=== PATIENT | male | born 1935 | race Caucasian/White ===

== ENCOUNTER 2022-02-15 14:20 | Inpatient (IN) | payer MEDICARE, OTHER, SELFPAY ==
[2022-02-15] VITALS (33 sets, daily range): BP systolic 113–143; BP diastolic 62–79; PULSE 48–73; RESP 16; TEMP 36.3–36.8; O2SAT 91–96; BMI 26.4
--- NOTE | 2022-02-15 14:41 | ED.CHESTPAIN ---
HPI - Chest Pain General Time Seen by Provider: 15:06 Date Seen: 02/15/22 Chief Complaint: Chest Pain Stated Complaint: Chest Pain Post Heart Surgery Time Seen by Provider: 02/15/22 14:41 Source: patient, family, RN notes reviewed and old records reviewed Mode of arrival: ambulatory Limitations: no limitations History of Present Illness HPI narrative: Patient is a very pleasant 86-year-old male who is coming to the emergency room with nausea, abdominal pain, and weakness. Patient was EN route about half way home from [place] where he had just been discharged after placement of 4 stents when he developed nausea and some abdominal discomfort. He also had increased weakness while walking. Also had some arm pain. They continued home to his granddaughter's house [place]. When in a chair he seemed to get worse and he was given nitro x2 with some improvement of his symptoms. At this time in the emergency room patient states that he still has nausea but is abdominal and arm pain is gone. He has not had fever or chills or diarrhea. He has started medications including Plavix, metoprolol, Imdur, PPI. 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 He was noted to have unusual need to stop for rest while out walking. He developed chest pain pain radiating to his left arm and nausea. 24 hours later had family came to visit for [place] and he was still experiencing some dizziness and nausea. That evening Sunday he was seen at a small hospital in [place]. Usually this hospital with transfer to a [place] for heart issues because he had been identified as a non-STEMI. However there was no capacity and on Sunday patient was transferred to [facility] in [place] at approximately 2130 hours there he underwent placement of 4 stents. He was also diagnosed with chronic diastolic heart failure with an EF of 56%. Hypertension, hyperlipidemia, acute kidney injury on chronic kidney disease stage 3 and had evidence of a right bundle branch block on his EKG. No known complications from his recent visit to [facility]. Related Data Home Medications Medication Instructions Recorded Confirmed clopidogrel 75 mg tablet (Plavix) 75 mg PO DAILY 02/15/22 02/15/22 isosorbide mononitrate 30 mg 30 mg PO DAILY 02/15/22 02/15/22 tablet,extended release 24 hr metoprolol succinate 25 mg capsule 25 mg PO DAILY 02/15/22 02/15/22 sprinkle, ext. release 24 hr nitroglycerin 2.5 mg 0.4 mg PO TID PRN 02/15/22 02/15/22 capsule,extended release (Nitro-Time) pantoprazole 40 mg tablet,delayed 40 mg PO DAILY 02/15/22 02/15/22 release rosuvastatin 20 mg sprinkle capsule 20 mg PO DAILY 02/15/22 02/15/22 Allergies Allergy/AdvReac Type Severity Reaction Status Date / Time No Known Drug Allergies Allergy Verified 02/15/22 14:31 Review of Systems Status of ROS Reports: 10 or more systems reviewed and unremarkable except as noted in History and below Const Denies: fever or chills Eyes Denies: change in vision ENMT Denies: throat pain or hoarseness Cardio Reports: shortness of breath with exertion (With exertion); Denies: chest pain, palpitations, edema or swelling of feet/ankles Resp Reports: shortness of breath (With exertion); Denies: cough or wheezing GI Reports: abdominal pain (Resolve) and nausea (Persistent); Denies: vomiting or diarrhea Denies: painful urination or urinary frequency Musculo Denies: back pain Neuro Denies: headache Allergy/Immuno Denies: wheezing PFSH PFSH Social History Smoking Status: Former smoker Do you use any of these nicotine containing products: None Second hand tobacco smoke exposure: No How often do you have a drink containing alcohol: never AUDIT-C Alcohol total score: 0 Non-prescribed substance use: denies use Exam Narrative Exam Narrative: Discharged from paperwork from [facility] is reviewed. We do not have any records on this patient. Patient is alert and oriented. He does appear fatigued but nontoxic in appearance. His EOM is full. Neck is supple without lymphadenopathy. Heart with a regular rate and rhythm without murmur. Lungs are with decreased breath sounds in the bases but I do not auscultate any crackles. Abdomen is soft nontender. Lower extremities without any edema. Moving all extremities. Const Vital Signs, click to edit/add: Vital Signs - 24 hr 02/15/22 14:23 02/15/22 14:30 02/15/22 15:11 Temperature 97.4 F L Pulse Rate Pulse Rate [Right Pulse Oximeter] 67 Respiratory Rate 16 Blood Pressure 127/62 Blood Pressure [Right Upper Arm] 113/66 Pulse Oximetry 96 91 Oxygen Delivery Method Room Air 02/15/22 15:13 02/15/22 15:30 02/15/22 15:32 Temperature Pulse Rate 49 L 50 L 49 L Pulse Rate [Right Pulse Oximeter] Respiratory Rate Blood Pressure 123/65 Blood Pressure [Right Upper Arm] Pulse Oximetry 92 95 94 Oxygen Delivery Method 02/15/22 14:50 02/15/22 14:57 02/15/22 15:33 Temperature Pulse Rate 49 L Pulse Rate [Right Pulse Oximeter] Respiratory Rate Blood Pressure Blood Pressure [Right Upper Arm] Pulse Oximetry 93 95 94 Oxygen Delivery Method 02/15/22 16:00 02/15/22 16:02 02/15/22 16:30 Temperature Pulse Rate 48 L 48 L 51 L Pulse Rate [Right Pulse Oximeter] Respiratory Rate Blood Pressure 123/65 Blood Pressure [Right Upper Arm] Pulse Oximetry 94 94 93 Oxygen Delivery Method 02/15/22 16:32 02/15/22 17:00 02/15/22 17:02 Temperature Pulse Rate 52 L 50 L 51 L Pulse Rate [Right Pulse Oximeter] Respiratory Rate Blood Pressure 131/74 128/70 Blood Pressure [Right Upper Arm] Pulse Oximetry 94 93 93 Oxygen Delivery Method 02/15/22 17:30 02/15/22 17:32 02/15/22 18:00 Temperature Pulse Rate 52 L 51 L 51 L Pulse Rate [Right Pulse Oximeter] Respiratory Rate Blood Pressure 122/69 Blood Pressure [Right Upper Arm] Pulse Oximetry 94 93 93 Oxygen Delivery Method 02/15/22 18:02 02/15/22 18:03 02/15/22 18:30 Temperature Pulse Rate 50 L 50 L 49 L Pulse Rate [Right Pulse Oximeter] Respiratory Rate Blood Pressure 129/67 Blood Pressure [Right Upper Arm] Pulse Oximetry 94 94 93 Oxygen Delivery Method 02/15/22 18:32 02/15/22 19:00 02/15/22 19:02 Temperature Pulse Rate 48 L 51 L 50 L Pulse Rate [Right Pulse Oximeter] Respiratory Rate Blood Pressure 131/67 143/79 H Blood Pressure [Right Upper Arm] Pulse Oximetry 94 92 94 Oxygen Delivery Method 02/15/22 19:30 02/15/22 19:32 02/15/22 20:00 Temperature Pulse Rate 51 L 49 L 54 L Pulse Rate [Right Pulse Oximeter] Respiratory Rate Blood Pressure 130/71 Blood Pressure [Right Upper Arm] Pulse Oximetry 94 92 93 Oxygen Delivery Method Documenting provider has reviewed patient's vital signs: yes Course Course Hospital Course: Patient is post stent placement at [facility] over the past 48 hours. He felt fine when he departed [facility] but long-term home he began experiencing arm pain, nausea, abdominal pain. They continued home and once there because symptoms seem to worsen they did do nitroglycerin x2 which did help. Patient is now in our emergency room at [facility]. Will do preliminary labs including CBC, comprehensive panel, troponin, urinalysis. Patient will receive Zofran. EKG will be done patient will placed on court monitor as well as oximetry. An IV will be placed. Reevaluation(s) Reevaluation #1: Patient has had resolution of nausea. Remains symptom-free at this time. Vital Signs Vital signs: Initial Vital Signs Temperature 97.4 F L 02/15/22 14:23 Temperature Source Temporal Artery Scan 02/15/22 14:23 Pulse Rate 67 02/15/22 14:23 Respiratory Rate 16 02/15/22 14:23 Blood Pressure 113/66 02/15/22 14:23 Blood Pressure Mean 81 02/15/22 14:23 Blood Pressure Position Sitting 02/15/22 14:23 Pulse Oximetry 96 02/15/22 14:23 Oxygen Delivery Method 02/15/22 14:23 Vital Signs Temperature 97.4 F L 02/15/22 14:23 Pulse Rate 67 02/15/22 14:23 Respiratory Rate 16 02/15/22 14:23 Blood Pressure 113/66 02/15/22 14:23 Pulse Oximetry 96 02/15/22 14:23 Oxygen Delivery Method 02/15/22 14:23 Temperature 98.0 F 02/15/22 20:02 Pulse Rate 53 L 02/15/22 20:02 Respiratory Rate 16 02/15/22 14:23 Blood Pressure 130/66 02/15/22 20:02 Pulse Oximetry 94 02/15/22 20:02 Oxygen Delivery Method 02/15/22 14:23 MDM - Chest Pain MDM Narrative Medical decision making narrative: 1. Angina post stent placement-patient has been pain-free since he has been in present in the ED. he did not need any further nitroglycerin but did have 2 doses prior to his arrival. Initial troponin 5.26 with subsequent troponin 4.19. EKG showed T-wave inversions in the inferior anterior lateral leads. However, in discussion with [facility] Cardiology this is unchanged from previous. Unfortunately no baseline to compare troponin but the fact that it is going down is reassuring. [place] [facility] suggest continuing current medications. At this time given pain-free state or anginal equivalent pain free state, no recommendation for heparin. 2. Chronic renal failure-creatinine is 2.4 able to ascertain that this morning's creatinine was also 2.4. 3. History of non STEMI-patient had 4 stents placed over knee in the last 48 hours. [facility] initially accepted this patient in transfer but then called back to tell us they would not be able to give him a bed tonight. Cardiology feels that he is safe to stay at [facility]. There really is no other transfers that we could possibly do tonight given the fact that we have been unable to get any patient's into the [facility]. Further[facility] I did inquire about possibility of transfer to [place] but given plunging temperatures and life-threatening when chills along with poor visibility this would be unsafe for EMS transport. Again, patient has been pain-free during his stay here. 4. Disposition-admit to the hospital in the care of Dr. Bolivar Medical Records Data Attestation: I reviewed the patient's medical records. Lab Data Attestation: I reviewed the patient's lab results. Labs: Lab Results 02/15/22 02/15/22 02/15/22 Range/Units 15:10 15:16 15:16 WBC 9.78 (4.50-11.00) K/uL RBC 3.62 L (4.30-5.90) m/uL Hgb 11.1 L (13.5-17.5) gm/dL Hct 32.2 L (37.0-53.0) % MCV 89 (80-100) fL MCH 31 (26-34) pg MCHC 35 (32-36) gm/dL RDW Coeff of Hannah 13.6 (11.5-15.5) % Plt Count 196 (140-440) K/uL Neut % (Auto) 78.1 H (42.0-72.0) % Lymph % (Auto) 7.4 L (20-44) % Morehouse % (Auto) 12.6 H (0.0-11.0) % Eos % (Auto) 0.9 (0.0-7.0) % Baso % (Auto) 0.1 (0.0-3.0) % Neut # (Auto) 7.60 H (1.7-7.0) K/uL Lymph # (Auto) 0.70 L (0.90-2.90) K/uL Morehouse # (Auto) 1.20 H (0.00-0.90) K/UL Eos # (Auto) 0.09 (0.00-0.50) K/uL Baso # (Auto) 0.01 (0.00-0.30) K/uL Sodium 127 L (135-149) mmol/L Potassium 4.5 (3.6-5.1) mmol/L Chloride 98 (96-114) mmol/L Carbon Dioxide 20 (20-32) mmol/L BUN 21 (7-30) mg/dL Creatinine 2.4 H (0.5-1.5) mg/dL Estimated Creat Clear 22.81 Estimated GFR 26 ml/min Glucose 127 H (60-115) mg/dL Calcium 8.8 (8.4-10.6) mg/dL Total Bilirubin 0.8 (0.1-1.5) mg/dL AST 57 H (12-35) U/L ALT 24 (4-50) U/L Alkaline Phosphatase 79 (40-150) U/L Total Protein 7.4 (6.0-8.3) g/dL Albumin 4.0 (3.3-5.0) g/dL SARS-CoV-2 (PCR) (Negative) Influenza Type A (PCR) (Negative) Influenza Type B (PCR) (Negative) POC Troponin I 5.26 H (0.01-0.04) ng/ml 02/15/22 02/15/22 Range/Units 15:16 16:30 WBC (4.50-11.00) K/uL RBC (4.30-5.90) m/uL Hgb (13.5-17.5) gm/dL Hct (37.0-53.0) % MCV (80-100) fL MCH (26-34) pg MCHC (32-36) gm/dL RDW Coeff of Hannah (11.5-15.5) % Plt Count (140-440) K/uL Neut % (Auto) (42.0-72.0) % Lymph % (Auto) (20-44) % Morehouse % (Auto) (0.0-11.0) % Eos % (Auto) (0.0-7.0) % Baso % (Auto) (0.0-3.0) % Neut # (Auto) (1.7-7.0) K/uL Lymph # (Auto) (0.90-2.90) K/uL Morehouse # (Auto) (0.00-0.90) K/UL Eos # (Auto) (0.00-0.50) K/uL Baso # (Auto) (0.00-0.30) K/uL Sodium (135-149) mmol/L Potassium (3.6-5.1) mmol/L Chloride (96-114) mmol/L Carbon Dioxide (20-32) mmol/L BUN (7-30) mg/dL Creatinine (0.5-1.5) mg/dL Estimated Creat Clear Estimated GFR ml/min Glucose (60-115) mg/dL Calcium (8.4-10.6) mg/dL Total Bilirubin (0.1-1.5) mg/dL AST (12-35) U/L ALT (4-50) U/L Alkaline Phosphatase (40-150) U/L Total Protein (6.0-8.3) g/dL Albumin (3.3-5.0) g/dL SARS-CoV-2 (PCR) Negative SARS-CoV-2 (Negative) Influenza Type A (PCR) Negative PCR FLU A (Negative) Influenza Type B (PCR) Negative PCR FLU B (Negative) POC Troponin I 4.71 H (0.01-0.04) ng/ml Imaging Data Chest x-ray: Attestation: I have reviewed the pertinent imaging results. My impression: No obvious infiltrates Radiologist's impression: Lungs: Mild interstitial prominence could indicate venous congestion or chronic change. No focal consolidation. Pleura: No pleural effusion or pneumothorax. Heart and Mediastinum: The cardiomediastinal silhouette is normal. The vessels are unremarkable. Bones: Unremarkable. IMPRESSION: No acute cardiopulmonary disease. ECG Data Attestation: I personally reviewed and interpreted this ECG as follows: ECG interpretation date: 02/15/22 Interpretation: EKG by my read shows sinus rhythm at a rate of 50. T-wave inversion in the inferior lateral leads noted. Right bundle-branch block is noted. Discharge Plan Discharge Clinical Impression: Creatinine elevation, Angina at rest Patient Disposition: Admitted As Inpatient Condition: Improved
--- NOTE | 2022-02-15 14:57 | CRLHL7_ITS ---
For Patients: As a result of the Cures Act, medical imaging exams and procedure reports are released immediately into your electronic medical record. You may view this report before your referring provider. If you have questions, please contact your health care provider. INDICATION: Angina. TECHNIQUE: Chest 1 views. COMPARISON: None. FINDINGS: Lungs: Mild interstitial prominence could indicate venous congestion or chronic change. No focal consolidation. Pleura: No pleural effusion or pneumothorax. Heart and Mediastinum: The cardiomediastinal silhouette is normal. The vessels are unremarkable. Bones: Unremarkable. IMPRESSION: No acute cardiopulmonary disease. Dictated by Mehrdad Tafoya MD @ 02/15/2022 4:01:17 PM (Electronically Signed)
[2022-02-15 15:27] LABS: Basophils Absolute Auto 0.01 K/uL (0.00-0.30); Basophils Percent Auto 0.1 % (0.0-3.0); Eosinophils Absolute Auto 0.09 K/uL (0.00-0.50); Eosinophils Percent Auto 0.9 % (0.0-7.0); Hematocrit 32.2 % (37.0-53.0); Hemoglobin* 11.1 gm/dL (13.5-17.5); Immature Granulocytes Abs Auto 0.09 K/uL (0.00-0.30); Immature Granulocytes Pct Auto 0.9 %; Lymphocytes Percent Auto 7.4 % (20-44); Mean Corpuscular HGB Conc 35 gm/dL (32-36); Mean Corpuscular Hemoglobin 31 pg (26-34); Mean Corpuscular Volume 89 fL (80-100); Monocytes Percent Auto 12.6 % (0.0-11.0); Neutrophils Percent Auto 78.1 % (42.0-72.0); Platelet Count* 196 K/uL (140-440); RDW Coefficient of Variation % 13.6 % (11.5-15.5); Red Blood Count 3.62 m/uL (4.30-5.90); White Blood Count* 9.78 K/uL (4.50-11.00)
[2022-02-15 15:33] LABS: Slide Review Reflex No
[2022-02-15 15:35] LABS: Troponin, Point-of-Care* 5.26 ng/ml (0.01-0.04)
[2022-02-15] MEDS: ONDANSETRON ODT 4 MG TAB PO (15:40)
[2022-02-15 15:42] LABS: Chloride* 98 mmol/L (96-114); Potassium* 4.5 mmol/L (3.6-5.1); Sodium* 127 mmol/L (135-149)
[2022-02-15 15:44] LABS: Creatinine* 2.4 mg/dL (0.5-1.5); Est. Creatinine Clearance* 22.81; Estimated Glomerular Filt Rate 26 ml/min
[2022-02-15 15:45] LABS: Alanine Aminotransferase* 24 U/L (4-50); Alkaline Phosphatase* 79 U/L (40-150); Aspartate Amino Transferase* 57 U/L (12-35); Bilirubin Total* 0.8 mg/dL (0.1-1.5); Blood Urea Nitrogen* 21 mg/dL (7-30); Carbon Dioxide* 20 mmol/L (20-32); Glucose* 127 mg/dL (60-115); Total Protein* 7.4 g/dL (6.0-8.3)
[2022-02-15 15:46] LABS: Calcium* 8.8 mg/dL (8.4-10.6)
[2022-02-15 15:56] LABS: PCR FLU A Negative PCR FLU A (Negative); PCR FLU B Negative PCR FLU B (Negative)
[2022-02-15 16:02] LABS: SARS PCR* Negative SARS-CoV-2 (Negative)
--- NOTE | 2022-02-15 16:28 | ED.NURSE ---
Per Dr Khanna, acceptance to [place]. Awaiting call back for bed
[2022-02-15 16:52] LABS: Troponin, Point-of-Care* 4.71 ng/ml (0.01-0.04)
--- NOTE | 2022-02-15 18:40 | ED.NURSE ---
Called [facility] to check on ETA for bed placement. Pt on a waiting list for PCU bed. Transfer center stated that it could be a few more hours, but due to the weather, transfer center stated she was going to speak with bed placement to see if other arrangements could be made. Awaiting a call back from [facility]. Accepting doctor is Dr Mcdonald.
--- NOTE | 2022-02-15 18:49 | ED.NURSE ---
[facility] returned call. There will not be a bed available for pt tonight. Will update
--- NOTE | 2022-02-15 18:56 | ED.NURSE ---
Heads up called to research greenhouse supervisor
--- NOTE | 2022-02-15 19:58 | P.IMHP_ITS ---
Hospitalist- H&P: HPI History of Present Illness Date Seen: 02/15/22 Chief complaint: Chest Pain Post Heart Surgery Narrative: Gordo Sotelo is a 86 year old male who presented to the emergency room with his son-in-law Fabio for concerns of abdominal pain, nausea, and weakness. 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 He stopped at his daughter's house in [place] given symptoms; took 2 nitro which relieved his discomfort. Given recent hospital stay, they presented to the [place] [facility] for symptoms. He has not had any fever or diarrhea. He has not vomited. ER course and findings: - persistent right bundle ricky block on EKG, noted T-wave inversions in inferoanterorior leads - elevated troponin - persistent nausea, relieved with Zofran - patient was initially accepted back at the [facility] for transfer; unfortunately, this bed was then taken prior to transfer - All other [facility] hospitals were called; patient is currently on the waiting list for [facility] in the emergency room discussed case with Cardiology at [facility]; given to downward trending troponins and resolution of symptoms, no heparin indicated at this time. Patient will be admitted for telemetry, serial troponins monitoring of symptoms. In addition to stenting at [facility], Gordo was noted to have RBBB on EKG and EF of 56% with chronic diastolic heart failure on TTE. He was discharged home on Plavix, Imdur, Toprol, nitro, Protonix, and Crestor. He has been taking these meds as prescribed. Patient's medical history updated below. His PCP is Dr. Yovany Bardales in [place], [place]. Review of Systems Status of ROS: Reports: 10 or more systems reviewed and unremarkable except as noted in History and below Narrative: Patiently currently denies CP, dyspnea, abdominal pain. FOR[facility]LY [facility] PFS Medical History (Updated 02/15/22 @ 21:24 by Rocio Bolivar MD) CKD (chronic kidney disease) Coronary artery disease Essential hypertension Hyperlipidemia Surgical History (Updated 02/15/22 @ 21:01 by Rocio Bolivar MD) Stented coronary artery Social History (Updated 02/15/22 @ 21:20 by Rocio Bolivar MD) Narrative: Lives with on a farm in [place], [place]. Daughter Tomeka lives in [place]. Patient quit smoking in the 1970s, he is a non-alcohol user. He is a retired armijo. Requests Full Code status. Smoking Status: Former smoker Do you use any of these nicotine containing products: None Second hand tobacco smoke exposure: No How often do you have a drink containing alcohol: never AUDIT-C Alcohol total score: 0 Non-prescribed substance use: denies use Meds Home Medications and Allergies Home Medications Medication Instructions Recorded Confirmed Type clopidogrel 75 mg tablet (Plavix) 75 mg PO DAILY 02/15/22 02/15/22 History isosorbide mononitrate 30 mg 30 mg PO DAILY 02/15/22 02/15/22 History tablet,extended release 24 hr metoprolol succinate 25 mg capsule 25 mg PO DAILY 02/15/22 02/15/22 History sprinkle, ext. release 24 hr nitroglycerin 2.5 mg 0.4 mg PO TID PRN 02/15/22 02/15/22 History capsule,extended release (Nitro-Time) pantoprazole 40 mg tablet,delayed 40 mg PO DAILY 02/15/22 02/15/22 History release rosuvastatin 20 mg sprinkle capsule 20 mg PO DAILY 02/15/22 02/15/22 History Allergies Allergy/AdvReac Type Severity Reaction Status Date / Time No Known Drug Allergies Allergy Verified 02/15/22 14:31 Exam Narrative: Exam Narrative: GEN: Alert HEENT: Normal external ears, EOMIs bilaterally, wearing hearing aids bilaterally CV: RRR, + systolic murmur without concerning features R: LCTA bilaterally without concerning wheezing, rales, or rhonchi Ext: wwp, trace bilateral edema Skin: No concerning skin lesions or rashes on exposed skin Neuro: No focal deficits Psych: Appropriate Const: Vital Signs, click to edit/add: Vital Signs - 24 hr 02/15/22 14:23 02/15/22 14:30 02/15/22 15:11 Temperature 97.4 F L Pulse Rate Pulse Rate [Right Pulse Oximeter] 67 Respiratory Rate 16 Blood Pressure 127/62 Blood Pressure [Ri ght Upper Arm] 113/66 Pulse Oximetry 96 91 Oxygen Delivery Me thod Room Air 02/15/22 15:13 02/15/22 15:30 02/15/22 15:32 Temperature Pulse Rate 49 L 50 L 49 L Pulse Rate [Right Pulse Oximeter] Respiratory Rate Blood Pressure 123/65 Blood Pressure [Ri ght Upper Arm] Pulse Oximetry 92 95 94 Oxygen Delivery Me thod 02/15/22 14:50 02/15/22 14:57 02/15/22 15:33 Temperature Pulse Rate 49 L Pulse Rate [Right Pulse Oximeter] Respiratory Rate Blood Pressure Blood Pressure [Ri ght Upper Arm] Pulse Oximetry 93 95 94 Oxygen Delivery Me thod 02/15/22 16:00 02/15/22 16:02 02/15/22 16:30 Temperature Pulse Rate 48 L 48 L 51 L Pulse Rate [Right Pulse Oximeter] Respiratory Rate Blood Pressure 123/65 Blood Pressure [Ri ght Upper Arm] Pulse Oximetry 94 94 93 Oxygen Delivery Me thod 02/15/22 16:32 02/15/22 17:00 02/15/22 17:02 Temperature Pulse Rate 52 L 50 L 51 L Pulse Rate [Right Pulse Oximeter] Respiratory Rate Blood Pressure 131/74 128/70 Blood Pressure [Ri ght Upper Arm] Pulse Oximetry 94 93 93 Oxygen Delivery Me thod 02/15/22 17:30 02/15/22 17:32 02/15/22 18:00 Temperature Pulse Rate 52 L 51 L 51 L Pulse Rate [Right Pulse Oximeter] Respiratory Rate Blood Pressure 122/69 Blood Pressure [Ri ght Upper Arm] Pulse Oximetry 94 93 93 Oxygen Delivery Me thod 02/15/22 18:02 Temperature Pulse Rate 50 L Pulse Rate [Right Pulse Oximeter] Respiratory Rate Blood Pressure 129/67 Blood Pressure [Ri ght Upper Arm] Pulse Oximetry 94 Oxygen Delivery Me thod Hospitalist - H&P: Result Labs Labs: Short CBC 02/15/22 Range/Units 15:16 WBC 9.78 (4.50-11.00) K/uL Hgb 11.1 L (13.5-17.5) gm/dL Hct 32.2 L (37.0-53.0) % Plt Count 196 (140-440) K/uL BMP 02/15/22 15:16 Sodium 127 L Potassium 4.5 Chloride 98 Carbon Dioxide 20 BUN 21 Creatinine 2.4 H Glucose 127 H Calcium 8.8 Liver Function 02/15/22 Range/Units 15:16 Total Bilirubin 0.8 (0.1-1.5) mg/dL AST 57 H (12-35) U/L ALT 24 (4-50) U/L Alkaline Phosphatase 79 (40-150) U/L Albumin 4.0 (3.3-5.0) g/dL Assessment and Plan Assessment and plan (1) Angina at rest: Problem comment: - resolved upon admission, recent PCI at [facility] Status: Acute (2) Coronary artery disease: Problem comment: - stented x4 02/11/22 at [place] Status: Acute (3) JAXSON (acute kidney injury): Problem comment: - with history of chronic kidney disease, baseline unclear Status: Acute Plan - admit to hospital on telemetry - follow troponins - communicate with Cardiology within any change in symptoms - Lovenox, SCDs, and Plavix for prophylaxis
--- NOTE | 2022-02-15 20:05 | W.PC.EDHO ---
Primary Language: Preferred Language: Orientation Status: [x] Alert & Oriented [] Slight Confusion [] Known Dx Dementia Transfers By: x Assist of 1 [] Assist of 2 [] Lift Active Medications Discontinued Medications Generic Name Dose Route Start Last Admin Trade Name Rafaela PRN Reason Stop Dose Admin Ondansetron HCl 4 mg 02/15/22 14:57 02/15/22 15:40 Ondansetron Odt 4 Mg Tab PO 02/15/22 14:58 4 mg ONCE ONE Administration Description of Symptoms ED Triage Present Problem patient on Sunday was having chest pain and on Description Sunday went [facility] and 4 stents placed. patient was discharged from [facility] today and returned to home with family sat in chair c/o left arm pain and left sided chest pain. started 1300 ago. taken 2 nitro with some relief rating at 3/ 10 scale. feeling nauseated and dizzy ED Triage Date of Onset of 02/15/22 Symptoms Pain Pain Description [Left Chest] Acute Pain Intensity [Left Chest] 3 Pain Scale Used [Left Chest] Numeric (1 - 10) Pain Scale Used Numeric (1 - 10) IV Insertion/Site Date of IV Line Insertion [ 02/15/22 Left Antecubital] Oxygen Administration Pulse Oximetry 94 Pulse Oximetry 93 Pulse Oximetry 93 Pulse Oximetry 94 Pulse Oximetry 93 Pulse Oximetry 93 Pulse Oximetry 94 Pulse Oximetry 93 Pulse Oximetry 94 Pulse Oximetry 94 Pulse Oximetry 94 Pulse Oximetry 94 Pulse Oximetry 95 Pulse Oximetry 92 Pulse Oximetry 95 Pulse Oximetry 93 Pulse Oximetry 91 Pulse Oximetry 96 Oxygen Delivery Method Room Air Cardiac Monitoring EKG Method 12 Lead EKG Method Bedside EKG Method Bedside
--- NOTE | 2022-02-15 20:52 | ED.NURSE ---
Report to KAROLINA Balbuena.
[2022-02-15 22:30] LABS: Troponin I* 5.81 ng/mL (0.01-0.04)
[2022-02-15] MEDS: ENOXAPARIN 30 MG/0.3ML INJ SUBCUT (23:00)
[2022-02-15 23:04] LABS: Troponin I* 6.32 ng/mL (0.01-0.04)
--- NOTE | 2022-02-15 23:28 | PC.NURSE ---
Critical troponin of 6.[address] Bolivar notified, no new orders received.
== END 2022-02-16 02:25 | disposition short-term general hospital (02) | DRG 281 ==
LOC: ED 19:59 → MEDSURG 20:00
PROVIDERS: Admitting Provider Family Medicine; Emergency Provider Family Medicine; Visit Provider Family Medicine
DX: I21.4 Non-ST elevation (NSTEMI) myocardial infarction (principal); I13.0 Hypertensive heart and chronic kidney disease with heart failure and stage 1 through stage 4 chronic kidney disease, or unspecified chronic kidney disease; I23.7 Postinfarction angina; N17.9 Acute kidney failure, unspecified; I50.32 Chronic diastolic (congestive) heart failure; Z95.5 Presence of coronary angioplasty implant and graft; N18.30 Chronic kidney disease, stage 3 unspecified; I45.10 Unspecified right bundle-branch block; I25.118 Atherosclerotic heart disease of native coronary artery with other forms of angina pectoris; E78.5 Hyperlipidemia, unspecified
CPT/HCPCS: 36415; 71045; 80048; 80053; 84484; 85025; 87631; 93005; 94761; 99285; A9270; J1650

== ENCOUNTER 2022-02-16 02:09 | Outpatient (CLI) | payer MEDICARE, OTHER, SELFPAY | END 2022-02-16 02:10 | disposition home or self-care (01) | LOC: AMB 02-19 14:51 | PROVIDERS: Visit Provider Family Medicine | DX: R07.89 Other chest pain (principal) | CPT/HCPCS: A0425; A0426 ==